=== PATIENT | female | born 1950 | race Caucasian/White ===

== ENCOUNTER 2017-12-27 07:35 | Emergency (ER) | payer MEDICARE, OTHER ==
--- NOTE | 2017-12-27 08:22 | UC ---
Respiratory Complaint HPI - HPI Summary HPI Summary: 66-year-old female presents with a persistent cough. States symptoms began December 07 with some nasal congestion and drainage gradually she developed a occasionally productive cough for yellow sputum. Reports she occasionally gets a headache from the cough. She was seen by her primary care provider 12/22/2017 and prescribed azithromycin and what sounds like Tessalon Perles. She says she completed her antibiotics as prescribed and cough has persisted. She has also used OTC Robitussin in addition to the Tessalon Perles without relief. Denies fever, chills, chest pain, shortness of breath, heartburn, abdominal pain, nausea, or vomiting. - History of Current Complaint Chief Complaint: UCRespiratory Stated Complaint: COUGH,HEADACHE Time Seen by Provider: 12/27/17 07:58 Hx Obtained From: Patient Onset/Duration: Gradual Onset, Lasting Weeks - over 2 weeks Pain Intensity: 0 Character: Cough: Productive, Sputum Description: - yellow Aggravating Factors: Recumbent Position Alleviating Factors: Nothing Associated Signs And Symptoms: Positive: Nasal Congestion. Negative: Dyspnea, Fever, Chills - Jell-O, Pleuritic Chest Pain, Wheezing, Hemoptysis, Edema, Sinus Discomfort - Allergies/Home Medications Allergies/Adverse Reactions: Allergies Allergy/AdvReac Type Severity Reaction Status Date / Time No Known Allergies Allergy Verified 08/16/16 11:59 Home Medications: Home Medications Calcium Carbonate/Vitamin D3 [Calcium 600 + Vit D Tablet] 1 each PO DAILY [History Confirmed 12/27/17] Ibuprofen TAB* [Advil TAB*] 800 mg PO Q6H PRN 12/27/17 [History Confirmed ] Pravastatin (NF) [Pravachol (NF)] 20 mg PO 1700 12/27/17 [History Confirmed ] PMH/Surg Hx/FS Hx/Imm Hx Endocrine History: Dyslipidemia Psychological History: Depression - Surgical History Surgical History: Yes Surgery Procedure, Year, and Place: RIGHT KNEE REPLACEMENT, 2003,Cholecystectomy , 1973,Revision Hammer Toes Right FOOT [id number] Surgery, 2009,Left Foot surgery,Bubba Carpal tunnel release,C Sections x 2. EXPLORATORY OF UTERUS, CATARACT REMOVAL BILATERAL; PINS REMOVED LEFT FOOT, GANGLION CYST REMOVAL RT FOOT. spacers in neck - Family History Family History: Noncontributory - Social History Occupation: Retired Lives: With Family Alcohol Use: Occasionally Alcohol Amount: 6 PER WEEK Substance Use Type: None Smoking Status (MU): Never Smoked Tobacco Review of Systems Constitutional: Negative Skin: Negative Eyes: Negative ENT: Nasal Discharge Respiratory: Cough Cardiovascular: Negative Gastrointestinal: Negative Is Patient Immunocompromised?: No All Other Systems Reviewed And Are Negative: Yes Physical Exam Triage Information Reviewed: Yes Vital Signs: Initial Vital Signs Temp 98.4 F 12/27/17 07:42 Pulse 76 12/27/17 07:42 Resp 16 12/27/17 07:42 BP 186/94 12/27/17 07:42 Pulse Ox 98 12/27/17 07:42 Vital Signs Reviewed: Yes Eyes: Positive: Conjunctiva Clear. Negative: Discharge ENT: Positive: Pharyngeal erythema - Mild with post-nasal drip, Nasal congestion , Nasal drainage, TMs normal, Uvula midline. Negative: Tonsillar swelling, Tonsillar exudate Neck: Positive: Supple, Nontender, No Lymphadenopathy Respiratory: Positive: Lungs clear, Normal breath sounds, No respiratory distress, Other: - Hacking, non-productive cough Cardiovascular: Positive: RRR, No Murmur Neurological: Positive: Alert Skin Exam: Normal UC Diagnostic Evaluation - Laboratory O2 Sat by Pulse Oximetry: 98 - Radiology Radiology Interpretation Completed By: ED Physician - No acute cardiopulmonary patholgy, Radiologist - No acute radiological evidence of cardiopulmonary pathology Respiratory Course/Dx - Course Course Of Treatment: 66 year old female presents with persistent occasionally productive cough. She was treated by her primary 6 days ago with azithromycin. She is also having nasal congestion and there was post-nasal drip evident on her exam. Preliminary reading of CXR no acute cardiopulmonary pathology. Will treat her for the post-nasal drip with fluticasone and saline rinses. I have also provided her with Robitussin with codeine PRN cough. She is to follow up with her PCP in 5 days for re-check. - Differential Dx/Diagnosis Differential Diagnosis/HQI/PQRI: Bronchitis, Lower Resp Infection Provider Diagnoses: Acute bronchitis, post-nasal drip Discharge - Sign-Out/Discharge Documenting (check all that apply): Patient Departure All imaging exams completed and their final reports reviewed: Yes - Discharge Plan Condition: Stable Disposition: HOME Prescriptions: Codeine Phosphate/Guaifenesin [Codeine-Guaifen 10-100 mg/5 ml] 10 ml PO Q6HR PRN #120 ml MDD 40 ml PRN Reason: Cough Fluticasone NASAL SPRAY 50MCG* [Flonase NASAL SPRAY 50MCG*] 2 spray BOTH NARES DAILY #1 btl Patient Education Materials: Acute Bronchitis (ED), Postnasal Drip (DC) Referrals: Ritesh Montes MD [Primary Care Provider] - 5 Days Additional Instructions: The chest x-ray performed in the clinic today was normal. I suspect your cough is related to some postnasal drip. The antibiotic you were prescribed by her primary is a long-acting antibiotic and therefore I do not feel that we need to start you on another antibiotic at this time. Start using Flonase 2 sprays each nostril once a day. I would recommend that you use a saline rinse kit such as Netti Pot or NeilMed twice daily. I'm giving a prescription for Robitussin with codeine for your cough. You may take 10 mL every 6 hours as needed. Be aware that this may cause drowsiness because of the codeine and therefore he should not drink alcohol, drive, or operate machinery if you're using this medication. Your blood pressure in the clinic today was elevated. You should follow-up with your primary care provider within the next 5 days to have this rechecked as well as to be reevaluated for your cough. Seek immediate medical attention in the emergency room if you develop a fever greater than 100.5 F, have chest pain, become short of breath, or have any worsening of symptoms. - Billing Disposition and Condition Condition: STABLE Disposition: Home
[2017-12-27 08:39] VITALS: BP 158/97
--- NOTE | 2017-12-27 09:24 | RAD ---
INDICATION: Cough and headache COMPARISON: Most recent comparison chest x-rays dated January 19, 2014 TECHNIQUE: PA and lateral views of the chest were obtained. FINDINGS: The heart and mediastinum are normal in size and contour. The lungs are grossly clear. There is no evidence of large pleural effusion. Stable postsurgical changes include intervertebral disc spaces and plate and screw fixator overlying the lower cervical spine. Degenerative changes of the thoracic spine include loss of intervertebral disc height and anterior marginal osteophyte formation. There is no radiographic evidence of free air beneath the diaphragm IMPRESSION: No radiographic evidence of acute cardiopulmonary disease.
== END 2017-12-27 08:54 | disposition home or self-care (01) ==
LOC: UCEAST 07:35
DX: J20.9 Acute bronchitis, unspecified (principal); R09.82 Postnasal drip
CPT/HCPCS: 71046; 99212; G0463

== ENCOUNTER 2018-01-16 10:29 | Emergency (ER) | payer MEDICARE, OTHER ==
[2018-01-16 10:49] VITALS: BP 119/70
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
--- NOTE | 2018-01-16 11:49 | RAD ---
Indication: RIGHT shoulder pain on abduction. Fall 2 weeks ago. Comparison: No relevant prior exams available on the [facility] PACS for comparison. Technique: Internal rotation AP, external rotation Grashey, scapular Y, axillary views RIGHT shoulder Report: Negative for fracture. Mild subchondral sclerosis and cystic change at the acromioclavicular joint and small inferior acromial bone spur. Minimal glenohumeral joint osteophytosis without significant joint space narrowing. Negative for calcific tendinopathy or abnormal soft tissue contour. Anterior cervical fusion hardware noted. IMPRESSION: #. No radiographic evidence for traumatic RIGHT shoulder injury. Mild osteoarthritis.
== END 2018-01-16 12:15 | disposition home or self-care (01) ==
LOC: UCEAST 10:29
DX: M25.511 Pain in right shoulder (principal); Z96.651 Presence of right artificial knee joint
CPT/HCPCS: 99212; G0463

== ENCOUNTER 2020-06-26 05:49 | Observation (INO) ==
[2020-06-26] MEDS ORDERED: Buffered Lidocaine 1% SYRIN 1 ml INTRADERM ONE ×2 (06:00→06:17)
[2020-06-26] MEDS ORDERED: Lactated Ringers 1000 ml BAG 1,000 ML IV SCH (06:00)
[2020-06-26] MEDS ORDERED: ceFAZolin 2 GM PREMIX 2 GM/50 ML BAG ONE (06:16)
[2020-06-26] MEDS ORDERED: fentaNYL 100 mcg/2 ml 50 MCG/ML VIAL ONE ×2 (07:00→12:11)
[2020-06-26] MEDS ORDERED: Ketamine HCL 50 mg/ml 10 ml VIAL (500 MG) ONE (07:00)
[2020-06-26] MEDS ORDERED: Phenylephrine IV 10 MG/ML 1 ml VIAL ONE (07:01)
[2020-06-26] MEDS ORDERED: Ondansetron 4 mg VIAL 2 MG/ML 2 ml VIAL ONE (07:01)
[2020-06-26] MEDS ORDERED: Glycopyrrolate IV 0.2 MG/ML 1 ML VIAL ONE ×2 (07:01→10:54)
[2020-06-26] MEDS ORDERED: Rocuronium 50 mg VIAL 10 mg/ml 5 ml VIAL (50 mg) ONE ×2 (07:01→09:56)
[2020-06-26] MEDS ORDERED: Dexamethasone IV 4 MG/ML VIAL 1 ml VIAL ONE ×2 (07:01→07:04)
[2020-06-26] MEDS ORDERED: Propofol 10 MG/ML 20 ML BTL ONE (07:01)
[2020-06-26] MEDS ORDERED: Lidocaine 2% PF 5 ML VIAL ONE (07:01)
[2020-06-26] MEDS ORDERED: Bupivacaine 0.5% SDV PF 30ML VIAL ONE (07:08)
[2020-06-26] MEDS ORDERED: Vancomycin 1,000 MG VIAL ONE ×2 (07:11→09:16)
[2020-06-26] MEDS ORDERED: Ropivacaine 5 MG/ML 20 ML VIAL 0.5% (100 MG) ONE (07:11)
[2020-06-26] MEDS ORDERED: Midazolam 2 mg/2 ml VIAL 1 mg/ml 2 ml VIAL (2 mg) ONE (07:13)
[2020-06-26] MEDS ORDERED: fentaNYL 100 mcg/2 ml 50 MCG/ML VIAL IV PRN (08:39)
[2020-06-26] MEDS ORDERED: Ondansetron 4 mg VIAL 2 MG/ML 2 ml VIAL IV PRN ×2 (08:39→11:24)
[2020-06-26] MEDS ORDERED: DiMENhydriNATE IV 50 mg/ml 1 ml VIAL IV PUSH PRN (08:39)
[2020-06-26] MEDS ORDERED: Naloxone 0.4 mg VIAL 0.4 mg/ml 1 ml VIAL IV PRN (08:39)
[2020-06-26] MEDS ORDERED: oxyCODONE/Acetamin 5/325 mg TAB PO PRN (08:39)
[2020-06-26] MEDS ORDERED: Morphine 2 MG/ML SYRINGE IV PRN (11:24)
[2020-06-26] MEDS ORDERED: Lactulose 30 ml UDC PO PRN (11:24)
[2020-06-26] MEDS ORDERED: diPHENhydraMINE 25 mg TAB PO PRN (11:24)
[2020-06-26] MEDS ORDERED: Magnesium Hydroxide LIQ 30 ML UDC PO PRN (11:24)
[2020-06-26] MEDS ORDERED: diPHENhydraMINE IV 50 MG/ML 1 ml VIAL (BENADRYL) IV PRN (11:24)
[2020-06-26] MEDS ORDERED: Ondansetron ODT 4 mg TAB 4 MG TAB PO PRN (11:24)
[2020-06-26] MEDS ORDERED: DiMENhydriNATE IV 50 mg/ml 1 ml VIAL ONE (12:33)
[2020-06-26] MEDS: Lactated Ringers 1000 ml BAG 1,000 ML IV SCH (13:38)
[2020-06-26] MEDS: oxyCODONE/Acetamin 5/325 mg TAB PO PRN ×2 (14:46→21:43)
[2020-06-26] MEDS: ceFAZolin 1 GM ADVAN 1 GM in NS 0.9% 50 ML 50 ML IVPB SCH ×2 (15:45→23:56)
[2020-06-26] MEDS: Magnesium Hydroxide LIQ 30 ML UDC PO SCH (21:42)
[2020-06-27] MEDS: Lactated Ringers 1000 ml BAG 1,000 ML IV SCH (02:34)
[2020-06-27] MEDS: oxyCODONE/Acetamin 5/325 mg TAB PO PRN (04:46)
[2020-06-27 04:50] LABS: Hematocrit 29 % (35-47); Hemoglobin 9.7 g/dL (12.0-16.0); Mean Platelet Volume 7.7 fL (7.4-10.4); Platelet Count 181 10^3/uL (150-450)
[2020-06-27 05:06] LABS: BUN/Creatinine Ratio 23.5 (8-20); Calcium 8.9 mg/dL (8.6-10.3); EGFR African American 103.2 (>60); EGFR Non-African American 85.3 (>60); Potassium 4.2 mmol/L (3.5-5.0)
[2020-06-27] MEDS: Magnesium Hydroxide LIQ 30 ML UDC PO SCH (07:34)
[2020-06-27] MEDS: ceFAZolin 1 GM ADVAN 1 GM in NS 0.9% 50 ML 50 ML IVPB SCH (07:35)
[2020-06-27] MEDS ORDERED: Vitamin THERAPEUTIC TAB PO SCH (09:00)
[2020-06-27] MEDS ORDERED: Aspirin EC 81 mg TAB.EC (enteric coated) PO SCH (09:00)
[2020-06-27 11:26] VITALS: BP 134/59
== END 2020-06-27 13:15 | disposition home or self-care (01) ==
LOC: INTOOBSV 05:49 → AA 05:49 → SSU 12:57
PROVIDERS: ADMIT Orthopaedic Surgery; ATTEND Orthopaedic Surgery